=== PATIENT | female | born 1990 | race Two or more races ===

== ENCOUNTER 2018-02-25 01:44 | Inpatient (IN) | payer SELFPAY ==
[2018-02-25] MEDS ORDERED: ONDANSETRON 4 MG/2 ML VIAL IVP ONE (01:55)
[2018-02-25] MEDS ORDERED: NS 1,000 ML IV ONE ×3 (01:55→05:24)
[2018-02-25] MEDS ORDERED: fentaNYL 100 MCG/2 ML INJ IVP ONE (01:55)
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
[2018-02-25 02:01] LABS: PLATELET COUNT 418 10^3/uL (150-400)
[2018-02-25] MEDS ORDERED: HYDROmorphONE/DILAUDID 1 MG/ML INJ ONE ×3 (02:25→07:05)
[2018-02-25] MEDS ORDERED: HYDROmorphONE/DILAUDID 2 MG/ML INJ IVP ONE (02:27)
[2018-02-25] MEDS ORDERED: LET GEL TOPICAL 1 EA SYR TP ONE (02:33)
[2018-02-25] MEDS ORDERED: TDAP ADULT 0.5 ML INJ (BOOSTRIX) IM ONE (02:40)
[2018-02-25] MEDS ORDERED: CEFAZOLIN 2 GM/DEXTROSE/100 ML BAG IV ONE (02:42)
[2018-02-25 02:58] LABS: INR 1.09 (0.83-1.16); PROTIME(PATIENT) 14.3 SEC (12.0-15.0)
[2018-02-25] MEDS ORDERED: ceFAZolin 2 GM/DEXTROSE 100 ML IV ONE (03:00)
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
[2018-02-25] MEDS ORDERED: HYDROmorphONE/DILAUDID 1 MG/ML INJ IVP ONE ×3 (04:44→10:02)
[2018-02-25] MEDS ORDERED: TETANUS, DIPHTHERIA TOX (7YR+) 0.5 ML INJ IM ONE (04:47)
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
[2018-02-25] MEDS: LR 1,000 ML IV SCH ×2 (06:06→23:49)
[2018-02-25 07:44] LABS: PLATELET COUNT 255 10^3/uL (150-400)
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
[2018-02-25] MEDS: HYDROmorphONE/DILAUDID 1 MG/ML INJ IVP PRN ×4 (11:41→20:10)
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
[2018-02-25] MEDS: ceFAZolin 2 GM/DEXTROSE 100 ML IV SCH ×2 (14:17→21:35)
[2018-02-25] MEDS: IBUPROFEN 600 MG TAB PO SCH ×2 (14:31→15:21)
[2018-02-25] MEDS: BACITRACIN ZINC 14.2 GM OINTTUBE TP SCH ×2 (16:11→21:34)
[2018-02-25] MEDS: KETOROLAC 15 MG/1 ML SDV IVP SCH ×2 (17:40→23:49)
[2018-02-25] MEDS: HYDROCODONE/APAP 5/325 TAB PO PRN (20:10)
[2018-02-25] MEDS: buPROPion SR 150 MG TAB PO SCH ×2 (21:34→21:38)
[2018-02-25] MEDS: ENOXAPARIN 40 MG/0.4 ML SYR SC SCH (21:35)
[2018-02-26] MEDS: HYDROmorphONE/DILAUDID 1 MG/ML INJ IVP PRN ×5 (02:39→22:19)
[2018-02-26] MEDS: KETOROLAC 15 MG/1 ML SDV IVP SCH ×3 (05:48→17:56)
[2018-02-26] MEDS: ceFAZolin 2 GM/DEXTROSE 100 ML IV SCH (05:48)
[2018-02-26] MEDS: HYDROCODONE/APAP 5/325 TAB PO PRN ×3 (05:54→17:50)
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
[2018-02-26] MEDS: buPROPion SR 150 MG TAB PO SCH ×2 (09:20→14:49)
[2018-02-26] MEDS: ENOXAPARIN 40 MG/0.4 ML SYR SC SCH (09:20)
[2018-02-26] MEDS: BACITRACIN ZINC 14.2 GM OINTTUBE TP SCH ×3 (09:21→22:06)
--- NOTE | 2018-02-26 10:48 | SOAPPROG ---
SOAP Progress Note Assessment/Plan: Assessment: Plan:humerus anmd shoulder xrays are negative, wbat, rom as rand right upper ext 02/26/18 10:47 Objective: Vital Signs Temp Pulse Resp BP Pulse Ox 36.5 C 92 16 101/69 90 L 02/26/18 08:00 02/26/18 08:00 02/26/18 08:00 02/26/18 08:00 02/26/18 08:00 Laboratory Results 02/25/18 06:37 02/25/18 06:37 02/25/18 02/26/18 02/27/18 05:59 05:59 05:59 Intake Total 5000 Output Total 4450 Balance 550 PT 14.3 SEC (12.0-15.0) 02/25/18 02:25 INR 1.09 (0.83-1.16) 02/25/18 02:25 ICD10 Worksheet Patient Problems: Problems Problem Status Onset Elbow laceration Acute Facial laceration Acute Head injury Acute Lip laceration Acute Pelvis fracture Acute Pneumothorax Acute SAH (subarachnoid hemorrhage) Acute
[2018-02-26] MEDS ORDERED: POLYETHYLENE GLYCOL 3350 17 GM PKT PO PRN (11:24)
[2018-02-26] MEDS ORDERED: BISACODYL 10 MG SUPP PR PRN (11:24)
[2018-02-26] MEDS ORDERED: MAGNESIUM HYDROXIDE 30 ML UDCUP PO PRN (11:24)
[2018-02-26] MEDS: CEPHALEXIN 500 MG CAP PO SCH ×2 (12:20→17:44)
[2018-02-26] MEDS: ONDANSETRON 4 MG/2 ML VIAL IVP PRN (16:17)
[2018-02-26] MEDS: SENNOSIDES/DOCUSATE SODIUM TAB PO SCH (22:05)
[2018-02-27] MEDS: CEPHALEXIN 500 MG CAP PO SCH ×5 (00:09→22:57)
[2018-02-27] MEDS: KETOROLAC 15 MG/1 ML SDV IVP SCH ×5 (00:09→22:57)
[2018-02-27] MEDS: HYDROCODONE/APAP 5/325 TAB PO PRN ×3 (05:16→22:48)
[2018-02-27] MEDS: buPROPion SR 150 MG TAB PO SCH ×2 (08:36→16:17)
[2018-02-27] MEDS: SENNOSIDES/DOCUSATE SODIUM TAB PO SCH ×2 (08:36→21:48)
[2018-02-27] MEDS: ENOXAPARIN 40 MG/0.4 ML SYR SC SCH (08:37)
[2018-02-27 08:48] LABS: PLATELET COUNT 195 10^3/uL (150-400)
[2018-02-27] MEDS: HYDROmorphONE/DILAUDID 1 MG/ML INJ IVP PRN ×2 (09:15→22:56)
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
[2018-02-27] MEDS: BACITRACIN ZINC 14.2 GM OINTTUBE TP SCH ×3 (10:47→21:49)
[2018-02-27] MEDS: ONDANSETRON 4 MG/2 ML VIAL IVP PRN (11:57)
--- NOTE | 2018-02-27 14:22 | ASMTCMCOM ---
CM Note CM Note Notes: Therapies would like an "Order" for In-pt Rehab. Date Signed: 02/26/2018 05:13 PM Electronically Signed By:Kimberly Gallo LCSW
--- NOTE | 2018-02-27 14:23 | ASMTCMCOM ---
CM Note CM Note Notes: CM spoke with RN and MD. Therapies are recommending inpatient rehab. CM spoke with admissions from [facility], pt is on their radar. CM spoke with [facility] for finacial counseling, they are applying for medicaid for pt. CM to follow. Date Signed: 02/27/2018 10:28 AM Electronically Signed By:ZEB Wilcox
--- NOTE | 2018-02-27 16:55 | SOAPPROG ---
SOAP Progress Note Assessment/Plan: Assessment: TERTIARY EXAM TODAY SEEN WITH MY NURSE PRACTITIONER AMAN DALY/ PLEASE REFER TO HER NOTE PATIENT STABLE/AFEBRILE AND COMFORTABLE/TONGUE WOUND OKAY/ABDOMEN SOFT/CHEST CLEAR Plan: WILL NEED A REHAB EVENTUALLY 02/27/18 16:54 Objective: Vital Signs Temp Pulse Resp BP Pulse Ox 36.7 C 98 18 109/65 94 02/27/18 16:00 02/27/18 16:00 02/27/18 16:00 02/27/18 16:00 02/27/18 16:00 Laboratory Results 02/27/18 08:35 02/27/18 08:35 02/26/18 02/27/18 02/28/18 05:59 05:59 05:59 Intake Total 5000 1000 Output Total 4450 1950 Balance 550 -950 PT 14.3 SEC (12.0-15.0) 02/25/18 02:25 INR 1.09 (0.83-1.16) 02/25/18 02:25 ICD10 Worksheet Patient Problems: Problems Problem Status Onset Elbow laceration Acute Facial laceration Acute Head injury Acute Lip laceration Acute Pelvis fracture Acute Pneumothorax Acute SAH (subarachnoid hemorrhage) Acute
[2018-02-28] MEDS: KETOROLAC 15 MG/1 ML SDV IVP SCH ×4 (06:36→22:39)
[2018-02-28] MEDS: CEPHALEXIN 500 MG CAP PO SCH ×4 (06:37→22:41)
[2018-02-28] MEDS: HYDROCODONE/APAP 5/325 TAB PO PRN ×3 (06:37→21:25)
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
[2018-02-28] MEDS: buPROPion SR 150 MG TAB PO SCH ×2 (10:48→14:57)
[2018-02-28] MEDS: HYDROmorphONE/DILAUDID 1 MG/ML INJ IVP PRN ×2 (10:48→22:40)
[2018-02-28] MEDS: SENNOSIDES/DOCUSATE SODIUM TAB PO SCH ×2 (10:48→21:26)
[2018-02-28] MEDS: ENOXAPARIN 40 MG/0.4 ML SYR SC SCH (10:51)
[2018-02-28] MEDS: BACITRACIN ZINC 14.2 GM OINTTUBE TP SCH ×3 (11:26→21:29)
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
[2018-03-01] MEDS: KETOROLAC 15 MG/1 ML SDV IVP SCH ×2 (05:45→10:40)
[2018-03-01] MEDS: CEPHALEXIN 500 MG CAP PO SCH ×3 (05:46→17:04)
[2018-03-01] MEDS: HYDROCODONE/APAP 5/325 TAB PO PRN ×2 (05:50→10:38)
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
--- NOTE | 2018-03-01 10:38 | ASMTCMCOM ---
CM Note CM Note Notes: Reviewed patient's case and spoke with CM on 3N. Due to patient's financial situation, self-pay, Medicaid pending, placement at rehab will be very difficult. [facility] has denied. NIKKIE has notified MD of this. Will continue to follow. Patient will likely have to d/c home with support of friends and family. Plan: TBD, pending progress and Medicaid pending status. Date Signed: 03/01/2018 10:23 AM Electronically Signed By:Minna Andrews RN
[2018-03-01] MEDS: BACITRACIN ZINC 14.2 GM OINTTUBE TP SCH ×3 (10:40→21:01)
[2018-03-01] MEDS: SENNOSIDES/DOCUSATE SODIUM TAB PO SCH ×2 (10:40→20:58)
[2018-03-01] MEDS: CHLORHEXIDINE GLUCONATE 15 ML UDL PO SCH ×2 (10:40→21:00)
[2018-03-01] MEDS: buPROPion SR 150 MG TAB PO SCH ×2 (10:40→15:13)
[2018-03-01] MEDS: ENOXAPARIN 40 MG/0.4 ML SYR SC SCH (10:41)
[2018-03-01] MEDS: HYDROmorphONE/DILAUDID 1 MG/ML INJ IVP PRN (10:53)
[2018-03-01] MEDS: CYCLOBENZAPRINE 10 MG TAB PO SCH ×2 (15:50→21:00)
[2018-03-01] MEDS: HYDROmorphONE/DILAUDID 4 MG TAB PO PRN ×3 (15:51→20:57)
[2018-03-01] MEDS: IBUPROFEN 600 MG TAB PO SCH ×2 (15:52→20:58)
--- NOTE | 2018-03-01 16:48 | SOAPPROG ---
SOAP Progress Note Assessment/Plan: Assessment: S/P tongue laceration sutured in ER. Mild dehiscence at R dorsal, R lateral, and R ventral surface. Healing well with no sign of infection. Sensation intact. Plan: - Continue with liquid diet. Would recommend starting Ensure/Boost or other protein rich, complete liquid diet. Nutrition consultation as needed. - Advance diet to pureed and beyond as tolerated. Would expect this to progress over a period of weeks as tongue heals. - Saline rinses after meals and PRN - Follow up ENT in 4-6 weeks. 03/01/18 16:42 Subjective: C/O tongue pain and difficulty eating. Objective: Vital Signs Temp Pulse Resp BP Pulse Ox 35.8 C L 100 16 114/79 96 03/01/18 15:27 03/01/18 15:27 03/01/18 15:27 03/01/18 15:27 03/01/18 15:27 Laboratory Results 02/27/18 08:35 02/27/18 08:35 02/28/18 03/01/18 03/02/18 05:59 05:59 05:59 Intake Total 1000 900 Output Total 1550 Balance -550 900 PT 14.3 SEC (12.0-15.0) 02/25/18 02:25 INR 1.09 (0.83-1.16) 02/25/18 02:25 Physical Exam - Physical Exam General Appearance: alert, no apparent distress EENT: PERRL/EOMI, No pharynx normal (R dehiscence of dorsal, lateral, and ventral tongue tip. Sensation intact. Tongue pink.), No pharyngeal erythema Neck: normal inspection Skin: normal color, warm/dry Neuro/Psych: normal mood/affect, oriented x 3 ICD10 Worksheet Patient Problems: Problems Problem Status Onset Elbow laceration Acute Facial laceration Acute Head injury Acute Lip laceration Acute Pelvis fracture Acute Pneumothorax Acute Rib fracture Acute SAH (subarachnoid hemorrhage) Acute tounge laceration Acute
[2018-03-01] MEDS: ACETAMINOPHEN 500 MG TAB PO SCH (20:59)
[2018-03-02] MEDS: HYDROmorphONE/DILAUDID 4 MG TAB PO PRN ×5 (01:07→19:21)
[2018-03-02] MEDS: CEPHALEXIN 500 MG CAP PO SCH ×4 (01:07→17:57)
[2018-03-02] MEDS: IBUPROFEN 600 MG TAB PO SCH ×4 (06:06→21:39)
[2018-03-02] MEDS: ACETAMINOPHEN 500 MG TAB PO SCH ×3 (06:07→21:38)
[2018-03-02] MEDS: CHLORHEXIDINE GLUCONATE 15 ML UDL PO SCH ×2 (09:29→21:37)
[2018-03-02] MEDS: CYCLOBENZAPRINE 10 MG TAB PO SCH ×3 (09:29→21:39)
[2018-03-02] MEDS: buPROPion SR 150 MG TAB PO SCH ×2 (09:29→15:41)
[2018-03-02] MEDS: ENOXAPARIN 40 MG/0.4 ML SYR SC SCH (09:30)
[2018-03-02] MEDS: BACITRACIN ZINC 14.2 GM OINTTUBE TP SCH ×3 (09:31→21:39)
[2018-03-02] MEDS: SENNOSIDES/DOCUSATE SODIUM TAB PO SCH ×2 (09:31→21:38)
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
[2018-03-03] MEDS: HYDROmorphONE/DILAUDID 4 MG TAB PO PRN ×4 (00:02→17:10)
[2018-03-03] MEDS: CEPHALEXIN 500 MG CAP PO SCH ×4 (00:02→17:11)
[2018-03-03] MEDS: IBUPROFEN 600 MG TAB PO SCH ×4 (05:29→21:04)
[2018-03-03] MEDS: ACETAMINOPHEN 500 MG TAB PO SCH ×3 (05:55→21:01)
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
[2018-03-03] MEDS: CYCLOBENZAPRINE 10 MG TAB PO SCH ×3 (11:54→21:03)
[2018-03-03] MEDS: ENOXAPARIN 40 MG/0.4 ML SYR SC SCH (11:54)
[2018-03-03] MEDS: buPROPion SR 150 MG TAB PO SCH ×2 (11:54→17:11)
[2018-03-03] MEDS: BACITRACIN ZINC 14.2 GM OINTTUBE TP SCH ×3 (11:59→21:04)
[2018-03-03] MEDS: SENNOSIDES/DOCUSATE SODIUM TAB PO SCH ×2 (12:01→21:03)
[2018-03-03] MEDS: CHLORHEXIDINE GLUCONATE 15 ML UDL PO SCH ×2 (12:01→21:04)
--- NOTE | 2018-03-03 13:45 | ASMTCMCOM ---
CM Note CM Note Notes: Due to patient's financial situation, self-pay, Medicaid pending, placement at rehab will be very difficult. [facility] IPR has denied. CM has notified MD of this. Will continue to follow. Patient will likely have to d/c home with support of friends and family. CM will follow for changes. D/C Plan: Anticipate home with family and friends for support. Date Signed: 03/03/2018 01:44 PM Electronically Signed By:Elis Pierre
[2018-03-04] MEDS: CEPHALEXIN 500 MG CAP PO SCH ×4 (00:27→17:24)
[2018-03-04] MEDS: HYDROmorphONE/DILAUDID 4 MG TAB PO PRN ×5 (00:33→21:50)
[2018-03-04] MEDS: IBUPROFEN 600 MG TAB PO SCH ×4 (06:03→21:48)
[2018-03-04] MEDS: ACETAMINOPHEN 500 MG TAB PO SCH ×3 (06:04→21:49)
[2018-03-04] MEDS: CYCLOBENZAPRINE 10 MG TAB PO SCH ×3 (09:35→21:49)
[2018-03-04] MEDS: CHLORHEXIDINE GLUCONATE 15 ML UDL PO SCH ×2 (09:36→21:50)
[2018-03-04] MEDS: buPROPion SR 150 MG TAB PO SCH ×2 (09:36→15:19)
[2018-03-04] MEDS: SENNOSIDES/DOCUSATE SODIUM TAB PO SCH ×2 (09:36→21:52)
[2018-03-04] MEDS: ENOXAPARIN 40 MG/0.4 ML SYR SC SCH (09:37)
[2018-03-04] MEDS: BACITRACIN ZINC 14.2 GM OINTTUBE TP SCH ×3 (09:43→21:51)
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
[2018-03-05] MEDS: CEPHALEXIN 500 MG CAP PO SCH ×2 (01:00→05:59)
[2018-03-05] MEDS: HYDROmorphONE/DILAUDID 4 MG TAB PO PRN ×5 (04:35→23:43)
[2018-03-05] MEDS: ACETAMINOPHEN 500 MG TAB PO SCH ×3 (05:56→22:31)
[2018-03-05] MEDS: IBUPROFEN 600 MG TAB PO SCH ×4 (05:57→21:25)
[2018-03-05] MEDS: CHLORHEXIDINE GLUCONATE 15 ML UDL PO SCH ×2 (08:35→21:27)
[2018-03-05] MEDS: CYCLOBENZAPRINE 10 MG TAB PO SCH ×3 (08:36→21:26)
[2018-03-05] MEDS: SENNOSIDES/DOCUSATE SODIUM TAB PO SCH ×2 (08:37→21:23)
[2018-03-05] MEDS: buPROPion SR 150 MG TAB PO SCH ×2 (08:37→15:07)
[2018-03-05] MEDS: ENOXAPARIN 40 MG/0.4 ML SYR SC SCH (08:39)
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
[2018-03-05] MEDS: BACITRACIN ZINC 14.2 GM OINTTUBE TP SCH ×3 (10:42→23:52)
[2018-03-06] MEDS: IBUPROFEN 600 MG TAB PO SCH ×4 (05:30→21:54)
[2018-03-06] MEDS: HYDROmorphONE/DILAUDID 4 MG TAB PO PRN ×4 (05:30→23:42)
[2018-03-06] MEDS: ACETAMINOPHEN 500 MG TAB PO SCH ×3 (06:20→21:54)
[2018-03-06] MEDS: ENOXAPARIN 40 MG/0.4 ML SYR SC SCH (08:11)
[2018-03-06] MEDS: CHLORHEXIDINE GLUCONATE 15 ML UDL PO SCH ×2 (08:11→21:53)
[2018-03-06] MEDS: CYCLOBENZAPRINE 10 MG TAB PO SCH ×3 (08:12→21:55)
[2018-03-06] MEDS: SENNOSIDES/DOCUSATE SODIUM TAB PO SCH ×2 (08:12→21:57)
[2018-03-06] MEDS: buPROPion SR 150 MG TAB PO SCH ×2 (08:12→17:21)
[2018-03-06] MEDS: BACITRACIN ZINC 14.2 GM OINTTUBE TP SCH ×3 (08:12→21:58)
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
--- NOTE | 2018-03-06 15:36 | ASMTCMCOM ---
CM Note CM Note Notes: Pt has continued to make progress, is independent in the room. Pt will d/c home with friends/family support. Date Signed: 03/06/2018 03:35 PM Electronically Signed By:FELIPE Kee
[2018-03-07] MEDS: IBUPROFEN 600 MG TAB PO SCH ×4 (05:30→21:00)
[2018-03-07] MEDS: ACETAMINOPHEN 500 MG TAB PO SCH ×3 (05:31→23:35)
[2018-03-07] MEDS: CHLORHEXIDINE GLUCONATE 15 ML UDL PO SCH ×2 (08:06→21:00)
[2018-03-07] MEDS: ENOXAPARIN 40 MG/0.4 ML SYR SC SCH (08:06)
[2018-03-07] MEDS: CYCLOBENZAPRINE 10 MG TAB PO SCH ×3 (08:06→21:01)
[2018-03-07] MEDS: HYDROmorphONE/DILAUDID 4 MG TAB PO PRN ×4 (08:07→23:35)
[2018-03-07] MEDS: SENNOSIDES/DOCUSATE SODIUM TAB PO SCH ×2 (08:10→22:23)
[2018-03-07] MEDS: BACITRACIN ZINC 14.2 GM OINTTUBE TP SCH ×3 (08:10→21:03)
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
[2018-03-07] MEDS: buPROPion SR 150 MG TAB PO SCH ×2 (11:22→15:44)
[2018-03-08] MEDS: HYDROmorphONE/DILAUDID 4 MG TAB PO PRN ×3 (03:37→13:54)
[2018-03-08] MEDS: IBUPROFEN 600 MG TAB PO SCH ×2 (05:49→12:51)
[2018-03-08] MEDS: ACETAMINOPHEN 500 MG TAB PO SCH (05:50)
[2018-03-08 08:20] VITALS: BP 110/68
[2018-03-08] MEDS: buPROPion SR 150 MG TAB PO SCH ×2 (09:12→15:02)
[2018-03-08] MEDS: CYCLOBENZAPRINE 10 MG TAB PO SCH (09:12)
[2018-03-08] MEDS: CHLORHEXIDINE GLUCONATE 15 ML UDL PO SCH (09:12)
[2018-03-08] MEDS: ENOXAPARIN 40 MG/0.4 ML SYR SC SCH (09:13)
[2018-03-08] MEDS: BACITRACIN ZINC 14.2 GM OINTTUBE TP SCH (09:16)
[2018-03-08] MEDS: SENNOSIDES/DOCUSATE SODIUM TAB PO SCH (09:16)
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
--- NOTE | 2018-03-08 11:27 | PDDCSUM ---
Discharge Summary Discharge Summary: [id number] discharge summary dictated S MD Deb,FACS
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
--- NOTE | 2018-03-08 15:51 | ASMTLACE ---
NARESHE Length of stay for Answers: 7-13 days current admission Acuity / Level of Answers: Yes Care: Did the patient have an inpatient admission? # of Emergency department Answers: 1-2 visits in the last 6 months Score: 9 Date Signed: 03/08/2018 03:50 PM Electronically Signed By:FELIPE Kee
--- NOTE | 2018-03-08 15:55 | ASMTCMCOM ---
CM Note CM Note Notes: Pt medically stable for d/c with [facility] PT/OT, can accept Medicaid pending and will obtain orders via [employer]. Pt scheduled with a follow up appointment 03/15/18 at 08:20 at [facility]. Pt paid for her own d/c meds with [employer]. Quynh with [employer] met w pt today to answer questions. Date Signed: 03/08/2018 03:55 PM Electronically Signed By:FELIPE Kee
== END 2018-03-08 15:16 | disposition home health service (06) | DRG 964 ==
LOC: EDBD 03:14 → F3N 10:22 → F3E 03-06 13:36
PROVIDERS: ADMIT Surgery; ATTEND Surgery
DX: S06.6X0A Traumatic subarachnoid hemorrhage without loss of consciousness, initial encounter (principal); S32.82XA Multiple fractures of pelvis without disruption of pelvic ring, initial encounter for closed fracture; S32.10XA Unspecified fracture of sacrum, initial encounter for closed fracture; T81.33XA Disruption of traumatic injury wound repair, initial encounter; S22.41XA Multiple fractures of ribs, right side, initial encounter for closed fracture; S01.512A Laceration without foreign body of oral cavity, initial encounter; S51.011A Laceration without foreign body of right elbow, initial encounter; S01.81XA Laceration without foreign body of other part of head, initial encounter; V43.52XA Car driver injured in collision with other type car in traffic accident, initial encounter; Y92.413 State road as the place of occurrence of the external cause; R40.2411 Glasgow coma scale score 13-15, in the field [EMT or ambulance]
CPT/HCPCS: 80305; 82435-PO; 82565-PO; 82947-PO; 84132-PO; 84295-PO; 84520-PO; 85014-PO; 92507-GN; 92523-GN; 96374; 97110-GP; 97116-GP; 97162-GP; 97166-GO; 97530-GO; 97530-GP; 97535-GO; G0480; J0690; J1170; J1650; J1885; J2270; J2405

== ENCOUNTER 2018-03-28 00:11 | Emergency (ER) | payer OTHER ==
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
[2018-03-28] MEDS ORDERED: ACETAMINOPHEN 500 MG TAB PO ONE (00:49)
[2018-03-28] MEDS ORDERED: HYDROmorphONE/DILAUDID 2 MG TAB PO ONE (02:28)
[2018-03-28] MEDS ORDERED: IBUPROFEN 800 MG TAB PO ONE (02:28)
[2018-03-28] MEDS ORDERED: GABAPENTIN 300 MG CAP PO ONE (03:26)
[2018-03-28 06:24] VITALS: BP 124/76
== END 2018-03-28 06:21 | disposition home or self-care (01) ==
DX: M79.671 Pain in right foot (principal)
CPT/HCPCS: L4386

== ENCOUNTER → 2018-04-13 | Outpatient (CLI) | payer MEDICAID | LOC: BMCIMAGING 16:23 | PROVIDERS: ATTEND Podiatrist Foot & Ankle Surgery | DX: S92.422A Displaced fracture of distal phalanx of left great toe, initial encounter for closed fracture (principal) ==

== ENCOUNTER → 2018-04-27 | Outpatient (CLI) | payer MEDICAID | LOC: BMCIMAGING 08:42 | PROVIDERS: ATTEND Orthopaedic Surgery | DX: S32.9XXD Fracture of unspecified parts of lumbosacral spine and pelvis, subsequent encounter for fracture with routine healing (principal) ==

== ENCOUNTER → 2018-05-25 | Outpatient (CLI) | payer MEDICAID | LOC: BMCIMAGING 08:27 | PROVIDERS: ATTEND Podiatrist Foot & Ankle Surgery | DX: S92.425 Nondisplaced fracture of distal phalanx of left great toe (principal); S32.9XXD Fracture of unspecified parts of lumbosacral spine and pelvis, subsequent encounter for fracture with routine healing ==

== ENCOUNTER → 2018-09-07 | Outpatient (CLI) | payer MEDICAID | LOC: BMCIMAGING 13:14 ==